=== PATIENT | female | born 1985 | race Caucasian/White ===

== ENCOUNTER 2018-11-06 09:51 | Emergency (ER) | payer MEDICAID ==
[~2018-11-06] VITALS: Ht 180.3 cm; Wt 130.0 kg
[~2018-11-06 09:51] MED LIST: OXYC-302 PO; SULF1TAB24 PO
[2018-11-06] MEDS ORDERED: OXYC5CAP2 PO (10:22)
--- NOTE | 2018-11-06 10:23 | NUR ---
pt to ed for lower left sided back pain and associated nausea x2 days. pt reports fall onto left side approx 3 weeks ago. pt was seen at [facility] 2 days ago. pt was prescribed oxycodone and muscle relaxers with no relief. pt is unable to follow up with pcp as it is the weekend. connected to monitors. vss. edmd assessment complete. awaiting orders.
[2018-11-06] MEDS ORDERED: ONDANSETRON 2MG/ML, 2ML ONE (10:28)
[2018-11-06] MEDS ORDERED: KETOROLAC 30 MG/1 ML ONE (10:28)
[2018-11-06] MEDS ORDERED: methylPREDNISolone SOD SUCC 125 MG/2 ML ONE (10:29)
--- NOTE | 2018-11-06 10:45 | NUR ---
iv established. pt medicated per oct. vss. no needs at this time. call light within reach.
[2018-11-06] MEDS ORDERED: methylPREDNISolone SOD SUCC 125 MG/2 ML IVPush ONE (11:00)
[2018-11-06] MEDS ORDERED: ONDANSETRON 2MG/ML, 2ML IVPush ONE (11:00)
[2018-11-06] MEDS ORDERED: DIAZEPAM 5 MG/ML, 2ML IVPush ONE (11:00)
[2018-11-06] MEDS ORDERED: KETOROLAC 30 MG/1 ML IVPush ONE (11:00)
--- NOTE | 2018-11-06 11:16 | NUR ---
pt back from imaging at this time.
--- NOTE | 2018-11-06 11:38 | NUR ---
all results back at this time. chart up for recheck. pt resting in room with lights dimmed. no needs at this time.
[2018-11-06 11:40] VITALS: BP 126/72
[2018-11-06] MEDS ORDERED: SODIUM CHLORIDE FLUSH 10ML SYR IVF ONE (12:00)
== END 2018-11-06 12:20 | disposition home or self-care (01) ==
LOC: ED 10:53
DX: S39.012A Strain of muscle, fascia and tendon of lower back, initial encounter (principal); M51.16 Intervertebral disc disorders with radiculopathy, lumbar region; M54.42 Lumbago with sciatica, left side; X58.XXXA Exposure to other specified factors, initial encounter; Y93.89 Activity, other specified; Y92.89 Other specified places as the place of occurrence of the external cause; Y99.8 Other external cause status
CPT/HCPCS: 72110; 72190; 96374; 96375; 99283; J1885; J2405; J2930; J3360

== ENCOUNTER 2018-11-10 18:54 | Emergency (ER) | payer MEDICAID ==
[~2018-11-10] VITALS: Ht 180.3 cm; Wt 130.0 kg
[~2018-11-10 18:54] MED LIST changes: +OXYC5CAP2 PO
[2018-11-10] MEDS ORDERED: muscle relaxant (19:01)
[2018-11-10] MEDS ORDERED: MELO15TA24 PO (19:01)
[2018-11-10] MEDS ORDERED: AMPH30TA2 PO (19:01)
--- NOTE | 2018-11-10 19:10 | NUR ---
Pt presented with c/o of lower back pain, states this has been present for one week. Also complain of anxiety attacks. Unable to get any sleep or to eat or drink. Is taking meloxicam and a muscle relaxant. pt was here 2 days ago and stated sent home with pain medication that is not working
[2018-11-10] MEDS ORDERED: HYDROmorphone 1 MG/ML, 1ML AMP IM STA (19:23)
[2018-11-10] MEDS ORDERED: HYDROmorphone 1 MG/ML, 1ML VIAL ONE (19:26)
--- NOTE | 2018-11-10 19:29 | NUR ---
PT STATED SHE IS UNABLE TO VOID AT THIS TIME, STATED "PAIN IS TOO BAD", SIDERAILS UP X2, CALL LIGHT WITHIN REACH.
--- NOTE | 2018-11-10 19:31 | NUR ---
PT MEDICATED PER MAR.
--- NOTE | 2018-11-10 19:57 | NUR ---
pt up to rr via w/c and tech at pt's side
--- NOTE | 2018-11-10 20:15 | NUR ---
PT RESTING ON GURNEY, STATED PAIN HAS NOT CHANGED TO LOWER BACK, PA UPDATED, AWAIITNG URINE RESULT, MONITORS REAPPLIED, SIDERAILS UP X2, INSTRUCTED PT NOT TO GET OOB WITHOUT ASSISTANCE, CALL LIGHT WITHIN REACH. PT NOW RESTING WITH EYES CLSED, NADN, RESPIRATIONS EQUAL AND UNLABORED.
[2018-11-10 20:24] LABS: MICROSCOPIC INDICATED
[2018-11-10 20:41] LABS: CULTURE INDICATED? NO
--- NOTE | 2018-11-10 21:23 | NUR ---
PT UP FOR D/C, PT TEARFUL AND REQUESTING TO SPEAK TO SOMEONE REGARDING HER D/C. NAILA DRIVER TO SEE PT
[2018-11-10 21:24] VITALS: BP 138/79
--- NOTE | 2018-11-10 21:24 | NUR ---
LATE ENTRY 2119- PT RESTING ON GURNEY WITH EYES CLOSED, NADN, RESPIRATIONS EVEN AND UNLABORED, SIDERAILS UP X2, CALL LIGHT WITHIN REACH
== END 2018-11-10 21:44 | disposition home or self-care (01) ==
LOC: ED 21:11
DX: S39.012A Strain of muscle, fascia and tendon of lower back, initial encounter (principal); W01.0XXA Fall on same level from slipping, tripping and stumbling without subsequent striking against object, initial encounter; Y93.89 Activity, other specified; Y92.89 Other specified places as the place of occurrence of the external cause; Y99.8 Other external cause status
CPT/HCPCS: 81001; 96372; 99283; J1170

== ENCOUNTER 2018-11-11 03:13 | Emergency (ER) | payer MEDICAID ==
[~2018-11-11] VITALS: Ht 180.3 cm; Wt 118.0 kg
[~2018-11-11 03:13] MED LIST changes: +AMPH30TA2 PO; +MELO15TA24 PO; +muscle relaxant
--- NOTE | 2018-11-11 03:27 | NUR ---
juni. report received from ems. pt c/o lower back pain. pt was here yesterday for the same reason. pt denies any other s/s at this time. bp/spo2 monitors in place. call light within reach. edmd at bedside to assess at this time.
[2018-11-11] MEDS ORDERED: DIAZEPAM 5 MG TABLET PO ONE (03:30)
[2018-11-11] MEDS ORDERED: KETOROLAC 30 MG/1 ML IM ONE (03:30)
[2018-11-11] MEDS ORDERED: KETOROLAC 30 MG/1 ML ONE (03:30)
[2018-11-11] MEDS ORDERED: DIAZEPAM 5 MG TABLET ONE (03:31)
[2018-11-11 03:44] VITALS: BP 133/92
--- NOTE | 2018-11-11 03:44 | NUR ---
pt medicated per emar. pt tolerated well. pt's aox4. resps even and unlabored.
--- NOTE | 2018-11-11 04:15 | NUR ---
pt yelled from her room and c/o gurney/blanket. pt states "I'm uncomfortable now." pt provided some warm blankets/pillow.
--- NOTE | 2018-11-11 04:25 | NUR ---
MARNIE RN: PT ROLLING AROUND IN BED, YELLING, DISTURBING OTHER PATIENTS. PT WAS ASKED WHAT SHE NEEDED AND SHE STATED "I NEED THIS BED TO BE MADE LIKE I ASKED AN HOUR AGO". PT HAS BEEN PROVIDED WITH MEDICATIONS, PILLOWS AND BLANKETS. SHE WAS ASKED TO PLEASE STOP YELLING DUE TO DISTURBING OTHER PATIENTS. PT AGREES. CALL LIGHT WITHIN REACH AND PT RE INSTRUCTED ON HOW TO USE THE CALL LIGHT INSTEAD OF YELLING.
--- NOTE | 2018-11-11 04:29 | NUR ---
FLOAT RN: PT RESTING QUIETLY ON GURNEY WITH EYES CLOSED.
--- NOTE | 2018-11-11 04:38 | NUR ---
MARNIE RN: THIS RN WENT TO DISCHARGE PT. PT BECAME ANGRY WHEN SHE WAS TOLD SHE WAS BEING DISCHARGED. SHE ASKED IF WE WERE GOING TO "DO ANYTHING ELSE". SHE WAS ADVISED WE HAVE GIVEN HER MEDICATIONS AND THERE WASN'T ANYTHING ELSE THAT COULD BE DONE IN THE ER. SHE WOULD NEED TO FOLLOW UP WITH HER PRIMARY CARE PHYSICIAN FOR FURTHER REFERRALS AND TREATMENT. SHE STATED "WELL Y'ALL CAN'T BE MAD WHEN I COME BACK. I GET THE GOOD STUFF HERE". THE PT WAS ADVISED SHE WAS PROVIDED WITH PRESCRIPTIONS FOR THE SAME MEDICATIONS SHE RECEIVED HERE. PT STILL HAS DC PAPERWORK IN PURSE FROM VISIT LAST NIGHT. SHE REQUESTS THAT WE FILL HER PRESCRIPTION HERE. SHE WAS EXPLAINED THE PROCESS OF GETTING HER PRESCRIPTION FILLED. PT WAS ABLE TO GET DRESSED AND A WHEELCHAIR WAS PROVIDED TO DISCHARGE HER. WHEN IT CAME TIME TO GET IN THE WHEELCHAIR, PT BECAME ANGRY AND STARTED CRYING STATING "I CAME HERE AND NO ONE WANTS TO HELP ME". PT WAS AGAIN REMINDED SHE WOULD NEED TO FOLLOW UP WITH HER PCP AND FILLING PRESCRIPTIONS. PT PROVIDED WITH DISCHARGE PAPERWORK FROM THIS VISIT. DENIES ANY QUESTIONS. PT PROVIDED WITH CAB VOUCHER FOR RIDE HOME. WHEELED TO THE DISCHARGE DESK.
== END 2018-11-11 04:56 | disposition home or self-care (01) ==
LOC: ED 04:35
DX: S39.012A Strain of muscle, fascia and tendon of lower back, initial encounter (principal); E66.01 Morbid (severe) obesity due to excess calories; Z68.36 Body mass index [BMI] 36.0-36.9, adult; W19.XXXA Unspecified fall, initial encounter; Y93.89 Activity, other specified; Y92.89 Other specified places as the place of occurrence of the external cause; Y99.8 Other external cause status
CPT/HCPCS: 96372; 99283; J1885

== ENCOUNTER 2018-11-12 18:51 | Emergency (ER) | payer MEDICAID ==
[~2018-11-12] VITALS: Ht 180.3 cm; Wt 122.7 kg
--- NOTE | 2018-11-12 19:04 | NUR ---
pt in gown in [facility]. erp at bs. pt educated on er process and poc and verbalizes understanding. call light is within reach. awaiting new orders at this time.
[2018-11-12] MEDS ORDERED: SODIUM CHLORIDE FLUSH 10ML SYR IVF ONE (19:30)
--- NOTE | 2018-11-12 19:50 | NUR ---
MRI FORM COMPLETED AND FAXED TO MRI. FORM PLACED IN PT CHART.
[2018-11-12 19:52] LABS: BASOPHILS # (AUTO) 0.08 x10^3/uL (0-0.1); BASOPHILS % (AUTO) 1 % (0-1); EOSINOPHILS # (AUTO) 0.17 x10^3/uL (0-0.4); EOSINOPHILS % (AUTO) 1 % (1-7); LYMPHOCYTES # (AUTO) 1.03 x10^3/uL (1-3.4); LYMPHOCYTES % (AUTO) 8 % (22-44); MD NO; MEAN CORPUSCULAR HEMOGLOBIN 30.9 pg (27.0-34.8); MEAN CORPUSCULAR VOLUME 90.9 fL (80-100); MEAN PLATELET VOLUME 7.5 fL (7.4-10.4); MONOCYTES # (AUTO) 0.75 x10^3/uL (0.2-0.8); MONOCYTES % (AUTO) 6 % (2-9); NEUTROPHILS # (AUTO) 10.67 x10^3/uL (1.8-6.8); NEUTROPHILS % (AUTO) 84 % (42-75); PLATELET COUNT 246 x10^3/uL (130-400); RED BLOOD COUNT 4.38 x10^6/uL (3.82-5.3); RED CELL DISTRIBUTION WIDTH 13.4 % (9.6-15.2)
[2018-11-12] MEDS ORDERED: DIAZEPAM 5 MG TABLET ONE (19:54)
[2018-11-12] MEDS ORDERED: DIAZEPAM 5 MG TABLET PO ONE (20:00)
[2018-11-12 20:03] LABS: ALBUMIN 2.5 g/dL (3.4-5.0); ANION GAP 8 mmol/L (5-15); CALCIUM 8.4 mg/dL (8.5-10.1); CHLORIDE 106 mmol/L (98-107); CREATININE 0.62 mg/dL (0.55-1.02)
--- NOTE | 2018-11-12 20:05 | NUR ---
PT MEDICATED FOR ANXIETY PER MAR.
--- NOTE | 2018-11-12 20:47 | NUR ---
PT TO MRI AT THIS TIME.
[2018-11-12] MEDS ORDERED: ZIPRASIDONE 20 MG INJ IM ONE ×2 (20:57→21:30)
--- NOTE | 2018-11-12 21:40 | NUR ---
PT MEDICATED PER MAR IN MRI
[2018-11-12] MEDS ORDERED: GADOBUTROL 10 MMOL/10 ML PFS ONE (21:47)
--- NOTE | 2018-11-12 22:01 | NUR ---
PT ASLEEP IN RNEY AT THIS TIME; NADN. PT VS MONITORED AND STABLE AT THIS TIME. CALL LIGHT IS WITHIN REACH.
[2018-11-12] MEDS ORDERED: KETOROLAC 30 MG/1 ML ONE (22:18)
[2018-11-12] MEDS ORDERED: DEXAMETHASONE 4 MG/ML, 5ML ONE (22:18)
[2018-11-12] MEDS ORDERED: DEXAMETHASONE 4 MG/ML, 1ML IVPush ONE (22:30)
[2018-11-12] MEDS ORDERED: KETOROLAC 30 MG/1 ML IVPush ONE (22:30)
--- NOTE | 2018-11-12 23:01 | NUR ---
PT D/C WITH D/C SUMMARY. PT SPOUSE/PARTNER HERE IN LOBBY TO PICK PT UP FOR D/C HOME. PT REQUESTING A WHEELCHAIR TO LOBBY DUE TO PAIN. PT ASSISTED TO WHEELCHAIR FOR D/C HOME. PT AMBULATES WITH STEADY GAIT TO WHEELCHAIR. PT DENIES ANY OTHER NEEDS PERTAINING TO THIS VISIT.
[2018-11-12 23:02] VITALS: BP 129/69
== END 2018-11-12 23:18 | disposition home or self-care (01) ==
LOC: ED 19:04
DX: M48.36 Traumatic spondylopathy, lumbar region (principal); M54.16 Radiculopathy, lumbar region; Z72.9 Problem related to lifestyle, unspecified; Z90.49 Acquired absence of other specified parts of digestive tract
CPT/HCPCS: 36415; 72158; 80048; 82040; 85025; 96372; 96374; 99284; A9585; J1100; J3486

== ENCOUNTER 2018-11-22 07:11 | Emergency (ER) | payer MEDICAID ==
[~2018-11-22] VITALS: Ht 180.3 cm; Wt 122.0 kg
[2018-11-22] MEDS ORDERED: KETOROLAC 30 MG/1 ML ONE (07:58)
[2018-11-22] MEDS ORDERED: DIAZEPAM 5 MG TABLET ONE (07:58)
[2018-11-22] MEDS ORDERED: DIAZEPAM 5 MG TABLET PO ONE (08:00)
[2018-11-22] MEDS ORDERED: KETOROLAC 30 MG/1 ML IM ONE (08:00)
[2018-11-22 08:36] LABS: BASOPHILS # (AUTO) 0.03 x10^3/uL (0-0.1); BASOPHILS % (AUTO) 0 % (0-1); EOSINOPHILS # (AUTO) 0.05 x10^3/uL (0-0.4); EOSINOPHILS % (AUTO) 1 % (1-7); LYMPHOCYTES # (AUTO) 1.56 x10^3/uL (1-3.4); LYMPHOCYTES % (AUTO) 18 % (22-44); MD NO; MEAN CORPUSCULAR HEMOGLOBIN 30.4 pg (27.0-34.8); MEAN CORPUSCULAR HGB CONC 33.8 g/dL (32.4-35.8); MEAN CORPUSCULAR VOLUME 89.9 fL (80-100); MEAN PLATELET VOLUME 7.4 fL (7.4-10.4); MONOCYTES % (AUTO) 4 % (2-9); NEUTROPHILS # (AUTO) 6.72 x10^3/uL (1.8-6.8); NEUTROPHILS % (AUTO) 78 % (42-75); PLATELET COUNT 510 x10^3/uL (130-400); RED BLOOD COUNT 3.96 x10^6/uL (3.82-5.3); RED CELL DISTRIBUTION WIDTH 12.2 % (9.6-15.2)
[2018-11-22 08:47] LABS: ALBUMIN 2.6 g/dL (3.4-5.0); ANION GAP 6 mmol/L (5-15); CALCIUM 9.1 mg/dL (8.5-10.1); CHLORIDE 107 mmol/L (98-107)
[2018-11-22 08:51] LABS: HCT (SEDRATE) 35.6 % (34.6-47.8)
[2018-11-22] MEDS ORDERED: SODIUM CHLORIDE FLUSH 10ML SYR IVF ONE (09:00)
[2018-11-22] MEDS ORDERED: DIAZEPAM 5 MG/ML, 2ML IVPush ONE (09:30)
[2018-11-22] MEDS ORDERED: OXYcodone/APAP 10/325MG TABLET PO ONE (09:30)
[2018-11-22] MEDS ORDERED: OXYcodone/APAP 10/325MG TABLET ONE (09:52)
[2018-11-22 10:03] VITALS: BP 136/87
--- NOTE | 2018-11-22 10:24 | NUR ---
HOSPITALIST IS AT THE BEDSIDE FOR CONSULT
== END 2018-11-22 11:06 | disposition home or self-care (01) ==
LOC: ED 08:33 → UNDOADMIN 09:21 → EDIP 09:21 → ED 11:06
DX: G89.29 Other chronic pain (principal); M54.5 Low back pain
CPT/HCPCS: 36415; 80048; 82040; 85025; 85651; 96372; 99283; J1885

== ENCOUNTER 2018-11-25 16:15 | Observation (INO) | payer MEDICAID ==
[~2018-11-25] VITALS: Ht 180.3 cm; Wt 113.0 kg
[2018-11-25 16:50] LABS: BASOPHILS # (AUTO) 0.01 x10^3/uL (0-0.1); BASOPHILS % (AUTO) 0 % (0-1); EOSINOPHILS % (AUTO) 0 % (1-7); LYMPHOCYTES # (AUTO) 1.09 x10^3/uL (1-3.4); LYMPHOCYTES % (AUTO) 13 % (22-44); MD NO; MEAN CORPUSCULAR HEMOGLOBIN 30.6 pg (27.0-34.8); MEAN CORPUSCULAR HGB CONC 34.6 g/dL (32.4-35.8); MEAN CORPUSCULAR VOLUME 88.3 fL (80-100); MEAN PLATELET VOLUME 7.6 fL (7.4-10.4); MONOCYTES # (AUTO) 0.21 x10^3/uL (0.2-0.8); MONOCYTES % (AUTO) 3 % (2-9); NEUTROPHILS # (AUTO) 6.87 x10^3/uL (1.8-6.8); NEUTROPHILS % (AUTO) 84 % (42-75); PLATELET COUNT 588 x10^3/uL (130-400); RED BLOOD COUNT 4.19 x10^6/uL (3.82-5.3); RED CELL DISTRIBUTION WIDTH 12.7 % (9.6-15.2)
[2018-11-25] MEDS ORDERED: SODIUM CHLORIDE FLUSH 10ML SYR IVF ONE (17:00)
[2018-11-25] MEDS ORDERED: ONDANSETRON 2MG/ML, 2ML IVPush ONE (17:00)
[2018-11-25 17:03] LABS: ALANINE AMINOTRANSFERASE 18 U/L (12-78); ALBUMIN 2.8 g/dL (3.4-5.0); ANION GAP 11 mmol/L (5-15); CALCIUM 9.6 mg/dL (8.5-10.1); CHLORIDE 106 mmol/L (98-107); CREATININE 0.74 mg/dL (0.55-1.02)
[2018-11-25 17:08] LABS: ALKALINE PHOSPHATASE 73 U/L (45-117); BILIRUBIN,TOTAL 0.2 mg/dL (0.2-1.0); TOTAL PROTEIN 8.5 g/dL (6.4-8.2)
[2018-11-25 17:16] LABS: CULTURE INDICATED? YES; MICROSCOPIC INDICATED
[2018-11-25] MEDS ORDERED: ONDANSETRON 2MG/ML, 2ML ONE (17:27)
[2018-11-25] MEDS ORDERED: HYDROmorphone 1 MG/ML, 1ML VIAL ONE (17:27)
[2018-11-25] MEDS ORDERED: HYDROmorphone 2 MG/ML, 1ML IVPush PRN (17:30)
[2018-11-25] MEDS ORDERED: ONDANSETRON 2MG/ML, 2ML IVPush PRN (17:30)
[2018-11-25] MEDS ORDERED: ENALAPRILAT 1.25 MG/ML, 2ML IVPush PRN (17:30)
[2018-11-25] MEDS ORDERED: LIDODERM 5% PATCH TD PRN (17:30)
[2018-11-25] MEDS ORDERED: ACETAMINOPHEN 325 MG TABLET PO PRN (17:30)
[2018-11-25] MEDS ORDERED: METHOCARBAMOL 500 MG TABLET PO PRN (17:30)
[2018-11-25] MEDS ORDERED: DOCUSATE 100 MG CAPSULE PO PRN (17:30)
[2018-11-25] MEDS ORDERED: SODIUM CHLORIDE FLUSH 10ML SYR IVF PRN (17:30)
--- NOTE | 2018-11-25 17:34 | NUR ---
RN WENT TO START IV & ADMINISTER PAIN MED, PT ASLEEP AT THIS TIME. NAD, POSTPONING IV INITIATION D/T PT SLEEPING. WCTM.
[2018-11-25] MEDS: HYDROmorphone 2 MG/ML, 1ML IVPush PRN ×2 (17:35→18:14)
--- NOTE | 2018-11-25 18:13 | NUR ---
PT SLEEPING IN BED, NAD, AWAITING MEDICAL BED, WCTM.
[2018-11-25] MEDS ORDERED: HEPARIN 5,000 UNITS/ML, 1ML ONE (18:25)
[2018-11-25] MEDS ORDERED: KETOROLAC 30 MG/1 ML ONE (18:26)
[2018-11-25] MEDS: HEPARIN 5,000 UNITS/ML, 1ML SQ SCH (18:58)
[2018-11-25] MEDS: KETOROLAC 30 MG/1 ML IV PRN (18:58)
--- NOTE | 2018-11-25 19:05 | NUR ---
BEDSIDE REPORT TO ISAAC RN, PT CARE TRANSFERRED AT THIS TIME. PT IN BED, NAD, AWAITING MEDICAL BED.
--- NOTE | 2018-11-25 19:53 | NUR ---
PT RESTING CALMLY IN BED WITH EYES CLOSED. NO STATED NEEDS NOR C/O PAIN. WILL CONTINUE TO MONITOR.
--- NOTE | 2018-11-25 19:58 | NUR ---
report to [facility] Del Carmen carlos for 466
--- NOTE | 2018-11-25 20:02 | NUR ---
called unr about possible UTI based on urine results, to check if wanted to start ABX. Dr. Byers stated she is waiting on the urine culture before prescribing ABX. verified urine culture is pending.
--- NOTE | 2018-11-25 20:10 | NUR ---
PT GIVEN VEGAN MEAL TRAY
[2018-11-25 21:56] VITALS: BP 122/81
[2018-11-26 02:57] VITALS: BP 112/72
[2018-11-26] MEDS: HEPARIN 5,000 UNITS/ML, 1ML SQ SCH (03:00)
[2018-11-26 05:33] LABS: BASOPHILS # (AUTO) 0.03 x10^3/uL (0-0.1); BASOPHILS % (AUTO) 1 % (0-1); EOSINOPHILS # (AUTO) 0.11 x10^3/uL (0-0.4); EOSINOPHILS % (AUTO) 2 % (1-7); LYMPHOCYTES # (AUTO) 2.43 x10^3/uL (1-3.4); LYMPHOCYTES % (AUTO) 39 % (22-44); MD NO; MEAN CORPUSCULAR HEMOGLOBIN 30.3 pg (27.0-34.8); MEAN CORPUSCULAR HGB CONC 33.6 g/dL (32.4-35.8); MEAN CORPUSCULAR VOLUME 90.3 fL (80-100); MEAN PLATELET VOLUME 7.6 fL (7.4-10.4); MONOCYTES # (AUTO) 0.44 x10^3/uL (0.2-0.8); MONOCYTES % (AUTO) 7 % (2-9); NEUTROPHILS # (AUTO) 3.21 x10^3/uL (1.8-6.8); NEUTROPHILS % (AUTO) 52 % (42-75); PLATELET COUNT 511 x10^3/uL (130-400); RED BLOOD COUNT 3.86 x10^6/uL (3.82-5.3); RED CELL DISTRIBUTION WIDTH 12.2 % (9.6-15.2)
[2018-11-26] MEDS: KETOROLAC 30 MG/1 ML IV PRN (06:34)
[2018-11-26 06:51] VITALS: BP 114/76
== END 2018-11-26 10:40 | disposition left against medical advice (07) ==
LOC: ED 17:16 → EDIP 17:17 → INTOOBSV 17:17 → ED 17:21 → 4NOR 20:30
PROVIDERS: ADMIT Family Medicine; ATTEND Family Medicine
DX: M54.5 Low back pain (principal); G89.29 Other chronic pain; Z68.34 Body mass index [BMI] 34.0-34.9, adult; M48.00 Spinal stenosis, site unspecified
CPT/HCPCS: 36415; 80053; 81001; 83690; 84703; 85025; 85651; 87077; 87086; 87186; 96372; 96374; 96375; 96376; 99284; G0378; J1644; J1885; J2405

== ENCOUNTER 2019-01-05 19:55 | Emergency (ER) | payer MEDICAID ==
[~2019-01-05] VITALS: Ht 180.3 cm; Wt 119.6 kg
--- NOTE | 2019-01-05 20:07 | NUR ---
PT AMBULATED TO ROOM. PT APPEARS TO BE IN PAIN. PT SEEN HERE FOR SAME MULTIPLE TIMES. PT CHANGING INTO GOWN. CALL LIGHT IN REACH
--- NOTE | 2019-01-05 20:59 | NUR ---
PT MEDICATED WITH PREDNISONE. PT RESTING WITH NO NEEDS AT THIS TIME. CALL LIGHT IN REACH
[2019-01-05 21:13] VITALS: BP 131/78
--- NOTE | 2019-01-05 21:13 | NUR ---
Patient given discharge instructions and they have confirmed that they understand the instructions. Patient ambulatory with steady gait.
== END 2019-01-05 21:15 | disposition home or self-care (01) ==
LOC: ED 20:28
DX: M54.16 Radiculopathy, lumbar region (principal); M54.5 Low back pain
CPT/HCPCS: 99283; J7512

== ENCOUNTER 2019-01-15 11:15 | Emergency (ER) | payer SELFPAY ==
[~2019-01-15] VITALS: Ht 180.3 cm; Wt 118.0 kg
[2019-01-15 11:34] VITALS: BP 107/58
[2019-01-15] MEDS ORDERED: BACL20TA PO (11:36)
[2019-01-15] MEDS ORDERED: GABA300C10 PO (11:36)
[2019-01-15] MEDS ORDERED: MEDR150V INJ (11:37)
[2019-01-15] MEDS ORDERED: KETOROLAC 30 MG/1 ML ONE (11:44)
[2019-01-15] MEDS ORDERED: KETOROLAC 30 MG/1 ML IM ONE (12:00)
== END 2019-01-15 12:20 | disposition home or self-care (01) ==
LOC: ED 12:10
DX: M54.5 Low back pain (principal)
CPT/HCPCS: 96372; 99283; J1885